=== PATIENT | female | born 1985 | race Caucasian/White ===

== ENCOUNTER 2021-06-07 07:06 | Inpatient (IN) | payer OTHER, SELFPAY ==
[2021-06-07] VITALS (86 sets, daily range): BP systolic 87–145; BP diastolic 22–94; PULSE 56–215; RESP 16–20; TEMP 36.5–37.1; O2SAT 97–100; BMI 35.6
--- OUTSIDE RECORDS SUMMARY | 2021-06-07 07:12 | XMS_ITS | Encounter Summary ---
:1985 Author Care Team Providers Name Role Phone Karie Easton MD Primary Care Provider [phone] Reason for Visit OB visit [id number] 06/11/2021 Assessment and Plan Assessment Note Patient is __37_weeks . Dis cussed plan. 1. Routine care Discussion Note: None recorded.Patient educational handouts: No information available. Plan of Care Reminders Provider Appointments Ob Routine Aure Sandee 06/14/2021 MD Jessica 9:45AM Lab None ? ? recorded. Referral None ? ? recorded. Procedures None ? ? recorded. Surgeries None ? ? recorded. Imaging None ? ? recorded. Medications Name Start Date ? ? ? Medications Administered None recorded. Vitals Height Weight BMI Blood Pressure 5 ft 6 in 221 lbs 35.7 kg/m2 109/73 mm[Hg] Results Lab Results None recorded. Allergies Code Code System Name Reaction Severity Onset NKDA ? ? ? Problems Name Status Onset Date Source ? Active 11/30/2020 ?
--- OUTSIDE RECORDS SUMMARY | 2021-06-07 07:12 | XMS_ITS | Encounter Summary ---
:1985 Author Care Team Providers Name Role Phone Karie Easton MD Primary Care Provider [phone] Reason for Visit OB visit Assessment and Plan 1. Advanced maternal age Discussion Note: None recorded.Patient educational handouts: No [...] BMI Blood Pressure 5 ft 6 in 210 lbs 33.9 kg/m2 105/70 mm[Hg] Results Lab Results None recorded. Allergies Code Code System Name Reaction Severity Onset NKDA ? ? ? Problems Name Status Onset Date Source ? Active 11/30/2020 ? Advanced Maternal Age Active ? ? Covid-19 Active ? ? Ultrasound Scan Abnormal Active ?
--- OUTSIDE RECORDS SUMMARY | 2021-06-07 07:12 | XMS_ITS | Encounter Summary ---
:1985 Author Care Team Providers Name Role Phone Karie Easton MD Primary Care Provider [phone] Reason for Visit OB visit Assessment and [...] BMI Blood Pressure 5 ft 6 in 206 lbs 33.2 kg/m2 111/75 mm[Hg] Results Lab Results None recorded. Allergies Code Code System Name Reaction Severity Onset NKDA ? ? ? Problems Name Status Onset Date Source ? Active 11/30/2020 ? Advanced Maternal Age Active ? ? Covid-19 Active ? ? Ultrasound Scan Abnormal Active ?
--- OUTSIDE RECORDS SUMMARY | 2021-06-07 07:12 | XMS_ITS | Encounter Summary ---
:1985 Author Care Team Providers Name Role Phone Karie Easton MD Primary Care Provider [phone] Reason for Visit OB visit Assessment and Plan 1. Advanced maternal age 2. COVID-19 Discussion Note: None recorded.Patient educational handouts: No [...] BMI Blood Pressure 5 ft 6 in 217 lbs 35 kg/m2 102/62 mm[Hg] Results Lab Results None recorded. Allergies Code Code System Name Reaction Severity Onset NKDA ? ? ? Problems Name Status Onset Date Source ? Active 11/30/2020 ? Advanced Maternal Age Active ? ? Covid-19 Active ? ?
--- OUTSIDE RECORDS SUMMARY | 2021-06-07 07:12 | XMS_ITS | Encounter Summary ---
:1985 Author Care Team Providers Name Role Phone Karie Easton MD Primary Care Provider [phone] Reason for Visit None recorded. Assessment and Plan 1. Disease of the respiratory sy stem complicating , childbirth and/or the puerperium ? US, obstetric, follow-up Discussion Note: None recorded.Patient educational handouts: No information available. Plan of Care Reminders Provider Appointments Ob Routine Aure Sandee 06/14/2021 MD Jessica 9:45AM Lab None ? ? recorded. Referral None ? ? recorded. Procedures None ? ? recorded. Surgeries None ? ? recorded. Imaging [facility] Obstetric, Follow-up 04/05/2021 Medications Name Start Date ? ? ? Medications Administered None recorded. Vitals None recorded. Results Lab Results None recorded. Allergies Code Code System Name Reaction Severity Onset NKDA ? ? ? Problems Name Status Onset Date Source ? Active 11/30/2020 ? Advanced Maternal Age Active ? ? Covid-19
--- OUTSIDE RECORDS SUMMARY | 2021-06-07 07:12 | XMS_ITS | Encounter Summary ---
:1985 Author Care Team Providers Name Role Phone Karie Easton MD Primary Care Provider [phone] Reason for Visit OB visit Assessment and [...] BMI Blood Pressure 5 ft 6 in 222 lbs 35.8 kg/m2 123/86 mm[Hg] Results Lab Results None recorded. Allergies Code Code System Name Reaction Severity Onset NKDA ? ? ? Problems Name Status Onset Date Source ? Active 11/30/2020 ? Advanced Maternal Age Active ? ? Covid-19 Active ? ? Ultrasound Scan Abnormal Active ?
--- OUTSIDE RECORDS SUMMARY | 2021-06-07 07:12 | XMS_ITS | Encounter Summary ---
:1985 Author Care Team Providers Name Role Phone Karie Easton MD Primary Care Provider [phone] Reason for Visit None recorded. Assessment and Plan 1. COVID-19 ? US, obstetric, follow-up Discussion Note: None recorded.Patient educational handouts: No information available. Plan of Care Reminders Provider Appointments Ob Routine Aure Sandee 06/14/2021 MD Jessica 9:45AM Lab None ? ? recorded. Referral None ? ? recorded. Procedures None ? ? recorded. Surgeries None ? ? recorded. Imaging US, [place] Obstetric, Follow-up 05/02/2021 Medications Name Start Date ? ? ? Medications Administered None recorded. Vitals None recorded. Results Lab Results None recorded. Allergies Code Code System Name Reaction Severity Onset NKDA ? ? ? Problems Name Status Onset Date Source ? Active 11/30/2020 ? Advanced Maternal Age Active ? ? Covid-19 Active ? ? Ultrasound Scan Abnormal Active ? ?
--- OUTSIDE RECORDS SUMMARY | 2021-06-07 07:12 | XMS_ITS | Encounter Summary ---
:1985 Author Care Team Providers Name Role Phone Karie Easton MD Primary Care Provider [phone] Reason for Visit None recorded. Assessment and Plan 1. Pre-existing maternal disease complicating ? US, obstetric, follow-up Discussion Note: None recorded.Patient educational handouts: No information available. Plan of Care Reminders Provider Appointments Ob Routine Aure Sandee 06/14/2021 MD Jessica 9:45AM Lab None ? ? recorded. Referral None ? ? recorded. Procedures None ? ? recorded. Surgeries None ? ? recorded. Imaging , [place] Obstetric, Follow-up 05/31/2021 Medications Name Start Date ? ? ? Medications Administered None recorded. Vitals None recorded. Results Lab Results None recorded. Allergies Code Code System Name Reaction Severity Onset NKDA ? ? ? Problems Name Status Onset Date Source ? Active 11/30/2020 ? Advanced Maternal Age Active ? ? Covid-19 Active ? ? Ultrasound Scan Abno
--- OUTSIDE RECORDS SUMMARY | 2021-06-07 07:12 | XMS_ITS | Encounter Summary ---
:1985 Author Care Team Providers Name Role Phone Karie Easton MD Primary Care Provider [phone] Reason for Visit OB visit Assessment and [...] BMI Blood Pressure 5 ft 6 in 214 lbs 34.5 kg/m2 102/69 mm[Hg] Results Lab Results None recorded. Allergies Code Code System Name Reaction Severity Onset NKDA ? ? ? Problems Name Status Onset Date Source ? Active 11/30/2020 ? Advanced Maternal Age Active ? ? Covid-19 Active ? ? Ultrasound Scan Abnormal Active ?
--- OUTSIDE RECORDS SUMMARY | 2021-06-07 07:12 | XMS_ITS | Encounter Summary ---
:1985 Author Care Team Providers Name Role Phone Karie Easton MD Primary Care Provider [phone] Reason for Visit OB visit Assessment and Plan Assessment Note Patient is ___weeks . Discu ssed plan. 1. Routine care Discussion Note: None [...] ft 6 in 217 lbs 35 kg/m2 117/73 mm[Hg] Results Lab Results None recorded. Allergies Code Code System Name Reaction Severity Onset NKDA ? ? ? Problems Name Status Onset Date Source ? Active 11/30/2020 ? Advanced Maternal Age Active
--- OUTSIDE RECORDS SUMMARY | 2021-06-07 07:12 | XMS_ITS ---
:1985 Author Care Team Providers Name Role Phone DEENA ANAND MD Primary Care Provider [phone] Allergies Code Code System Name Reaction Severity Status Onset NKDA ? Medications Name Status Start Date Stop Date ? ? azithromycin 250 mg tablet Completed ? 03/28 codeine 10 mg-guaifenesin 100 mg/5 mL Completed ? 11/08/2020 oral liquid methylprednisolone 4 mg tablets in a Completed ? 11/08/2020 dose pack Active ? Not available tizanidine 2 mg capsule Completed ? 11/09/19 21 Problems Name Status Onset Date Source ? Active 11/30/2020 ? Advanced Maternal Age Active ? ? Covid-19 Active ? ? Ultrasound Scan Abnormal Active ? ? Procedures Date Name Performed by ? 11/30/2020 US, Obstetric, 1St Trimester [address] [place] [address] ([address]) 01/25/2021 US, Obstetric, 2Nd or 3Rd Trimester Anna goddard [address] [place] [address] ([address]) 02/23/2021 US, Obstetric, Follow-up [address] [address] [place] [address] (W
[2021-06-07 07:47] LABS: Basophils Absolute Auto 0.1 K/mm3 (0.0-0.1); Basophils Percent Auto 0.7 % (0.2-1.2); Eosinophils Absolute Auto 0.1 K/mm3 (0-0.3); Hematocrit 37.3 % (37.0-47.0); Hemoglobin 12.6 g/dL (12.0-15.0); Immature Granulocyte Absolute 0.14 K/mm3 (0.00-0.031); Lymphocytes Percent Auto 21.4 % (18.3-44.2); Mean Corpuscular HGB Conc 33.8 g/dl (32-36); Mean Corpuscular Hemoglobin 30.6 pg (26-34); Mean Corpuscular Volume 90.5 fl (80-100); Mean Platelet Volume 11.8 fl (7.4-10.4); Monocytes Percent Auto 7.5 % (2.6-8.5); Neutrophils Absolute Auto 9.3 K/mm3 (1.3-6.7); Neutrophils Percent Auto 68.4 % (45.5-73.1); Platelet Count Result 246 k/mm3 (150-375); Red Blood Count 4.12 M/mm3 (4.2-5.4); Red Cell Distribution Width 14.1 % (11.5-14.5); White Blood Count 13.6 K/mm3 (4.5-10.0)
--- NOTE | 2021-06-07 08:02 | PM.IMHP ---
H&P: HPI History of Present Illness Date/Time: 06/07/21 08:02 Chief Complaint: induction of labor Narrative: Johanna is a 35yo at 39.3 for IOL, elective. complicated by AMA and by COVID at 18w, has had normal growth. Review of Systems Review of Systems: All systems reviewed & are unremarkable except as noted in HPI and below PMFSH Family History Family History Mother Osteoporosis Celiac disease Grandparent Colon cancer Grandparent Lung cancer Grandparent Pancreas cancer Daughter DEMETRIA (juvenile idiopathic arthritis) Seizure Social History Social History Smoking status: Never smoker Substance use: never Spiritual care concerns: No Meds Home Medications and Allergies Home Medications Medication Instructions Recorded Confirmed Type Daily 1 tablet PO HS 06/07/21 06/07/21 History aspirin 81 mg PO DAILY 06/07/21 06/07/21 History Allergies Allergy/AdvReac Type Severity Reaction Status Date / Time No Known Allergies Allergy Verified 05/25/21 15:42 Vital Signs Vital Signs - 24 hr 06/07/21 07:25 06/07/21 07:31 06/07/21 07:57 Temperature 97.7 F Pulse Rate 83 72 Respiratory Rate 20 Blood Pressure 87/69 L 111/87 Exam Const: General: no acute distress Resp: Effort & Inspection: normal respiratory effort Auscultation: clear to auscultation bilaterally Cardio: Rate: regular rate Rhythm: regular rhythm GI: GI Palp: Yes Soft to palpation Extrem: General: normal to inspection Assessment and Plan Assessment and plan (1) AMA (advanced maternal age) multigravida 35+: Code(s): O09.529 - Supervision of elderly multigravida, unspecified trimester Status: Acute (2) Term : Code(s): Z34.90 - Encounter for supervision of normal , unspecified, unspecified trimester Status: Acute Additional Plan Here for induction of labor- pitocin GBSneg AROM clear SVE /-3 FHT category 1
[2021-06-07] MEDS: OXYTOCIN 30 UNITS/NS 500 ML 30 UNITS/500 ML BAG IV CONT (08:36)
[2021-06-07] MEDS: LACTATED RINGERS 1,000 ML 125 ML IV CONT ×2 (08:36→10:47)
--- NOTE | 2021-06-07 09:02 | LDADM ---
This patient, Johanna Billy, was admitted to Labor/Delivery/Recovery 102 on 06/07/21 at 07:06. Plans for labor, pain management and were discussed with patient. Patient/family oriented to hospital policies and general routines including ID bracelet, bed and alarms, visiting hours, pain management, procedures, bathroom and other care routines, personal items, smoking policy, room service/diet and guest tray routines, security routines, and visiting hours. Patient/Family are encouraged to report perceived risks to care and to ask questions if they do not understand what they are told or what they should do. See OBIX for further documentation.
[2021-06-07] MEDS: ONDANSETRON INJ 4 MG/2 ML VIAL IV PUSH (10:47)
--- NOTE | 2021-06-07 13:39 | PM.OBPRVD ---
OB - Delivery Note Procedure Delivery date: 06/07/21 Procedure: Induction method: AROM and Per Pitocin Protocol Delivery monitor: External FHT and External Uterine Route of delivery: Episiotomy description: None Laceration Description: Perineal - 1st Degree Delivery repair: vicryl Specimen: No Quantitative Blood Loss (ml): 120 Anesthesia type: Epidural Disposition: Floor Narrative: With adequate expulsive efforts by the mother, the baby's head was delivered OA. The baby's anterior shoulder was delivered under the pubic symphysis without difficulty. The posterior shoulder and the rest of the baby delivered without difficulty. The infant was placed on the mothers chest and suctioned and stimulated. The cord was clamped and cut after 30 seconds. Mother and baby both stable. Baby Date of : 06/07/21 Time of : 13:23 Weeks of gestation at delivery: 39 Infant gender: Male Weight (pounds): 7 Weight (ounces): 4 presentation: vertex Placenta delivery description: Spontaneous Cord Vessel Description: 3 Vessels, Nuchal Cord (x2) and Delayed Cord Clamping score one minute: 8 score five minutes: 9
[2021-06-07] MEDS: OXYTOCIN 30 UNITS/NS 500 ML 30 UNITS/500 ML BAG 125 UNITS IV CONT (14:08)
[2021-06-07] MEDS: WITCH HAZEL 40 PADS 1 PAD TOPICAL (16:20)
[2021-06-07] MEDS: IBUPROFEN 600 MG TABLET PO ×2 (17:06→23:57)
--- NOTE | 2021-06-07 17:12 | OBPPTRN ---
1638 Patient transferred to post room #286 via W/C. Support person present. Oriented to unit, room, information board, rooming in, admission packet and security measures. Patient verbalizes understanding.
--- NOTE | 2021-06-07 19:15 | PC.NURSE ---
Patient taken to first floor nursery via wheelchair to feed .
[2021-06-07] MEDS: ACETAMINOPHEN 325 MG TABLET 650 MG PO (23:57)
[2021-06-08] VITALS: BP 112/75; PULSE 73; RESP 16; TEMP 36.8; O2SAT 97
[2021-06-08 04:00] VITALS: BP 115/74; PULSE 71; RESP 16; TEMP 36.7; O2SAT 97
[2021-06-08 05:08] LABS: Hematocrit 33.9 % (37.0-47.0); Hemoglobin 11.4 g/dL (12.0-15.0)
[2021-06-08 07:10] VITALS: BP 104/71; PULSE 71; RESP 16; TEMP 37.2; O2SAT 100
--- NOTE | 2021-06-08 07:37 | PM.OBPNVD ---
OB - PN: Subj Subjective Date/time seen: 06/08/21 07:37 Patient comments: no complaints and pain well controlled baby status: nursing well and other (in L2 for some bradycardia, resolved and to be upstairs today.) OB - PN: Obj Data Labs CBC & Chem 7: 06/08/21 04:01 Labs: Laboratory Results - last 24 hr 06/07/21 06/07/21 06/08/21 07:37 08:23 04:01 WBC 13.6 H RBC 4.12 L Hgb 12.6 11.4 L Hct 37.3 33.9 L MCV 90.5 MCH 30.6 MCHC 33.8 RDW 14.1 Plt Count 246 MPV 11.8 H Immature Gran % (Auto) 1.0 H Neut % (Auto) 68.4 Lymph % (Auto) 21.4 [place] % (Auto) 7.5 Eos % (Auto) 1.0 Baso % (Auto) 0.7 Lymph # (Auto) 2.90 [place] # (Auto) 1.0 H Eos # (Auto) 0.1 Baso # (Auto) 0.1 Abs Immat Gran (auto) 0.14 H Absolute Neuts (auto) 9.3 H Absolute Nucleated RBC 0.0 Nucleated RBC % 0.0 Blood Type A Positive Antibody Screen Negative OB - PN A/P Assessment and Plan (1) , delivered: Code(s): O80 - Encounter for full-term uncomplicated delivery Status: Acute Plan day: 1 Plan: routine care Comments: circ when baby out of L2 home tomorrow. Time Spent With Patient Time: Total time spent is greater than 50% in coordination of care (as documented) at patient's floor/unit and/or counseling patient: Time with patient: less than 15 minutes Exam Narrative: NAD abdomen soft, nontender, fundus firm below the umbilicus Extremities nontender, 1+ edema
[2021-06-08] MEDS: IBUPROFEN 600 MG TABLET PO ×2 (07:53→15:25)
[2021-06-08] MEDS: ACETAMINOPHEN 325 MG TABLET 650 MG PO (07:54)
--- NOTE | 2021-06-08 07:54 | WPDANLDPN2 ---
Anes-Prog Note L&D Date/Time: 06/08/21 07:54 Comfortable throughout: labor and delivery Neuraxial method: epidural Epidural/Spinal procedure site: clean & non-tender Neuro status: Neuro function grossly intact. Cardiovascular status: normal Respiratory status: normal Airway patency: baseline Mental status: baseline Post-Op hydration status: normal Vital Signs: Last Vital Signs Temp 36.7 C 06/08/21 04:00 Pulse 71 06/08/21 04:00 Resp 16 06/08/21 04:00 BP 115/74 06/08/21 04:00 Pulse Ox 97 06/08/21 04:00 Pain score (VAS): 3 I/O: Intake & Output 06/07/21 06/07/21 06/08/21 15:59 23:59 07:59 Intake Total 1500 500 Output Total 120 Balance 1500 380 Post-procedural complaints: none Patient feedback: Patient satisfied with anesthetic care.
[2021-06-08] MEDS: MULTIVIT/MIN/PREN/FOL AC/IRON TABLET 1 TAB PO (08:00)
--- NOTE | 2021-06-08 08:50 | PC.NURSE ---
0820 - Introductions were made, then consulted with patient to assess needs related to . Mother led the conversation with her experience feeding her infant so far and just returned from her downstairs in level 2. She has experience with her first child. Mother acknowledges the benefits of skin to skin (unwrapping and placing vertically on her chest), responsive feeding and how to watch for early feeding signs, frequency of feeding on demand about every 8-12 times in 24 hours (every 2-3 hours), milk production, duration of feeding, signs of adequate intake/output and how to record on the feeding sheet. Reviewed positioning and ear, shoulder, hip alignment, supporting the breast, asymmetrical latch (off-center), and leading with the chin with a big open side gape. Nipple care reviewed with optimal latch and good positioning. Mother voiced understanding of responsive feedings, stimulating with skin to skin, hand expressed colostrum, touch, talking to to encourage if it has been 2 -3 hours since the start of the last , to call if infant does not latch or there is discomfort with once infant is back with her on the post floor. Reported to the primary RN.
--- NOTE | 2021-06-08 11:26 | PC.NURSE ---
0945 - Reported to RN mother fed infant supplementation of formula related to blood sugar results 38mg/dl.
[2021-06-08 12:39] VITALS: BP 106/65; PULSE 77; RESP 16; TEMP 36.9; O2SAT 77
[2021-06-08 12:39] LABS: Rapid Plasma Reagin Non-Reactive (NonReactive)
[2021-06-08 19:20] VITALS: BP 121/69; PULSE 87; RESP 18; TEMP 36.6; O2SAT 100
[2021-06-09] MEDS: ACETAMINOPHEN 325 MG TABLET 650 MG PO (02:52)
[2021-06-09 07:55] VITALS: BP 138/82; PULSE 70; RESP 18; TEMP 36.6; O2SAT 99
--- NOTE | 2021-06-09 08:12 | PM.OBPNVD ---
OB - PN: Subj Subjective Date/time seen: 06/09/21 08:12 Patient comments: no complaints, pain well controlled and tolerating diet OB - PN: Obj Data Labs CBC & Chem 7: 06/08/21 04:01 Labs: Laboratory Results - last 24 hr 06/07/21 07:37 RPR Non-reactive OB - PN A/P Plan day: 2 Plan: routine care and discharge home Time Spent With Patient Time: Total time spent is greater than 50% in coordination of care (as documented) at patient's floor/unit and/or counseling patient: Exam Const: General: comfortable and no acute distress Resp: Effort & Inspection: normal respiratory effort Auscultation: no rales, no rhonchi and no wheezes Cardio: Rate: regular rate Heart sounds: no click, no murmurs and no rubs GI: GI Palp: Yes Soft to palpation and No Tenderness to palpation present (GI) Auscultation: normal bowel sounds Extrem: General: normal to inspection, no pedal edema and no calf tenderness
--- NOTE | 2021-06-09 08:13 | PM.OBDSVD ---
DS: Admitting Diagnosis Discharge Date 06/09/21 Admitting Diagnosis term gestation DS: Discharge Diagnosis Discharge Diagnosis (1) , delivered: Code(s): O80 - Encounter for full-term uncomplicated delivery Status: Acute OB - DS: Summary OB Procedures : None OB Procedures Intrapartum: Spontaneous Vag Delivery OB Procedures: : None Time Spent with Patient Time attestation: Total time spent providing and/or coordinating discharge services: DS: Data Data Completed and Pending Labs on day of discharge: Labs from last 24 hours 06/07/21 07:37 RPR Non-reactive Discharge Plan Discharge Discharging Clinician: Guy Calderon Patient Disposition: Home, Self-Care Activity: pelvic rest Diet: regular Patient Instructions: Antibiotic Form Stand Alone Forms: General Discharge Information Follow-up/Referrals: Guy Calderon MD [Physician] - Discharge Medications: Continued aspirin 81 mg Capsule 81 mg PO DAILY RF: 0 Daily 1 tablet PO HS RF: 0 Date of admission: 06/07/21 07:06 Primary Care Provider: PHYSICIAN NOT ON STAFF,NONSTAFF Admitting Provider: Aure Lopez Attending physician on admission: Aure Lopez Condition: Stable
[2021-06-09] MEDS: MULTIVIT/MIN/PREN/FOL AC/IRON TABLET 1 TAB PO (09:29)
[2021-06-09] MEDS: IBUPROFEN 600 MG TABLET PO (09:30)
--- NOTE | 2021-06-09 10:56 | PC.NURSE ---
Patient viewed the discharge video Mother & Baby Care, The First Two Weeks . Patient was given the opportunity and encouraged to ask questions. Patient verbalized understanding of information shared and has been given the mother/baby guide for home reference.
--- NOTE | 2021-06-09 14:16 | PC.NURSE ---
0800 - Mother led the conversation with her experience and plan to feed her so far and her ability to independently latch optimally without discomfort. Mother independently latched her infant to the right breast in cradle position without discomfort and latch is optimal with infant demonstrating good rocking motion and suck/swallow/pause ratios. Reminded parents to use good handwashing technique to prevent infection. Mother is feeding appropriately for growth of infant and understands stimulating to eat if needed. Infant has had appropriate feedings in the last 24 hours meets the outcomes for weight, output and jaundice at this time. Mother states she is confident to continue effectively her infant at home or when to call for assistance and denies any additional assistance or education at this time. Reinforced understanding of milk production, transition of milk, signs of adequate intake, prevention/relief of engorgement, responsive after visualizing feeding cues, the different methods of stimulating infant to breastfeed 2-3 hours after the start of the last feeding, community resources, medication information reviewed per [employer] and when to call a provider using the resource of the mom and baby guide/[facility] website. Mother voiced understanding of the education shared. Reported to the primary RN.
== END 2021-06-09 11:13 | disposition home or self-care (01) | DRG 807 ==
LOC: ANHLDR 07:19 → ANHOB2 06-09 08:15 → ANHLDR 06-10 10:25 → ANHOB2 06-10 10:25
PROVIDERS: Admitting Provider Obstetrics & Gynecology; Visit Provider Obstetrics & Gynecology
DX: O69.81X0 Labor and delivery complicated by cord around neck, without compression, not applicable or unspecified (principal); Z37.0 Single live birth; Z3A.39 39 weeks gestation of pregnancy; O36.8330 Maternal care for abnormalities of the fetal heart rate or rhythm, third trimester, not applicable or unspecified; O70.0 First degree perineal laceration during delivery
CPT/HCPCS: 36415; 85014; 85018; 85025; 86592; 86850; 86900; 86901; A9270; J2405; J2590; J2795; J7120